=== PATIENT | male | born 1955 ===

== ENCOUNTER 2017-01-16 15:52 | Inpatient (IN) | payer BC ==
[2017-01-16] MEDS ORDERED: Naloxone 0.4 mg/ml Inj (Adult) IVP STA ×2 (16:07→19:54)
[2017-01-16] MEDS ORDERED: Naloxone 0.4 mg/ml Inj (Adult) ONE ×2 (16:09→19:57)
--- NOTE | 2017-01-16 16:13 | ED PDOC ---
HPI: Psych/Substance Abuse Time Seen by Provider: 01/16/17 16:01 Chief Complaint (Nursing): Substance Abuse Chief Complaint (Provider): substance abuse ED Caveat: Acuity of Condition History Per: EMS History/Exam Limitations: intoxication Current Symptoms Are (Timing): Still Present Modifying Factor(s): Other ("pain pills") Severity: Moderate Additional Complaint(s): 61 year old male with a pertinent medical history of opioid abuse and COPD is brought into the ED by EMS for possible substance abuse. Patient is currently nodding off during HPI and physical exam and falls asleep before answering the questions. HPI as per EMS: patient was found drowsy, walking home from work and seen by a bystander as stumbling. He denies any drug use, but admits to taking "pain pills for a headache". PMD: Daniel Lechuga MD Past Medical History Reviewed: Historical Data, Nursing Documentation, Vital Signs Vital Signs: Last Vital Signs Temp 97.6 F 01/16/17 15:57 Pulse 88 01/16/17 15:57 Resp 14 01/16/17 15:57 BP 112/61 01/16/17 15:57 Pulse Ox 94 L 01/16/17 15:57 - Medical History PMH: Anxiety, Asthma, Bronchitis, Fractures (WRIST/NOSE/LEG/CASTED NO SURGERY), Pneumonia (1 yr ago) Denies: HIV, Chronic Kidney Disease - Family History Family History: States: Unknown Family Hx - Social History Current smoker - smoking cessation education provided: Yes Alcohol: None Drugs: Denies, Other (history of opioid use) - Immunization History Hx Tetanus Toxoid Vaccination: No Hx Influenza Vaccination: No Hx Pneumococcal Vaccination: No - Home Medications Home Medications: Ambulatory Orders Medication Instructions Recorded Multivitamin/Iron/Folic Acid 1 tab PO DAILY 01/13/16 [Centrum Complete Multivit Tab] - Allergies Allergies/Adverse Reactions: Allergies Allergy/AdvReac Type Severity Reaction Status Date / Time No Known Allergies Allergy Verified 06/18/15 16:39 Review of Systems ROS Statement: Except As Marked, All Systems Reviewed And Found Negative Neurological: Positive for: Altered Mental Status Physical Exam - Reviewed Nursing Documentation Reviewed: Yes Vital Signs Reviewed: Yes - Physical Exam Appears: Positive for: Non-toxic, No Acute Distress. Negative for: Well (thin appearing, dissheveled) Head Exam: Positive for: ATRAUMATIC, NORMOCEPHALIC Eye Exam: Negative for: Normal appearance (pinpoint pupils) Neurologic/Psych: Positive for: Alert, Oriented (x2) - Laboratory Results Result Diagrams: 01/16/17 17:04 01/16/17 17:04 - ECG O2 Sat by Pulse Oximetry: 94 (RA) Pulse Ox Interpretation: Abnormal Medical Decision Making Medical Decision Makin:01 Initial impression: 61 year old male having an opioid overdose. Initial plan: * drug screen urinary * accucheck * reevaluation 18:45 Patient will be placed into ED observation secondary to clinical condition. See ED observation note for further updates. Scribe Attestation: Documented by Carla Zarco, acting as a scribe for Guru Palencia MD. Provider Scribe Attestation: All medical record entries made by the Scribe were at my direction and personally dictated by me. I have reviewed the chart and agree that the record accurately reflects my personal performance of the history, physical exam, medical decision making, and the department course for this patient. I have also personally directed, reviewed, and agree with the discharge instructions and disposition. ED OBSERVATION Date of observation admission: 01/16/17 Time of observation admission: 18:45 - Observation admission statement Patient is being placed in observation because:: secondary to clinical condition - Goals of Observation Goals of observation are:: Patient is being placed into ED observation pending reevaluation and final disposition. - Progress Note Progress Note: 01/16/17 18:51 Spoke with , who agrees with decision to admit pt to ED observation for respiratory depression. Patient is on 91% O2, easily arousable to voice. Patient does not need 2nd dose of narcan. Consult for potential ICU admission. 01/16/17 20:[address] in ICU to observe overnight for respiratory depression given concurrent opiate overdose and patient having COPD. Spoke with Dr. Thomas who agrees with ICU admission. Patient maintaining saturation at 90-91 % on 2L and easily arousable to voice. Narcan drip not needed at this time, was going to administer .2mg of narcan but patient was awake already at that moment. Disposition - Clinical Impression Clinical Impression: Opiate overdose - Disposition Disposition Time: 20:09 Condition: STABLE
[2017-01-16 17:07] LABS: EOS # 0.1 K/uL (0.0-0.7); EOS % 1.1 % (0.0-4.0); HEMATOCRIT 35.2 % (35.0-51.0); LYMPH # 0.4 K/uL (1.0-4.3); MEAN CELL VOLUME 90.8 fl (80.0-94.0); MEAN CORPUSCULAR HEMOGLOBIN 29.9 pg (27.0-31.0); MEAN CORPUSCULAR HGB CONC 32.9 g/dL (33.0-37.0); MONO # 4.5 K/uL (0.0-0.8); NEUT # 4.4 K/uL (1.8-7.0); PLATELET COUNT 263 K/uL (130-400); RED CELL DISTRIBUTION WIDTH 14.6 % (11.5-14.5); WHITE BLOOD COUNT 9.5 K/uL (4.8-10.8)
[2017-01-16 17:13] LABS: ABG ALLEN TEST YES; ARTERIAL BLOOD GAS HCO3 25.6 mmol/L (21-28); ARTERIAL BLOOD GAS PH 7.34 (7.35-7.45); ARTERIAL BLOOD GAS PO2 49 mm/Hg (80-100)
[2017-01-16 17:19] LABS: BLOOD UREA NITROGEN 22 mg/dl (9-20); CALCIUM 9.2 mg/dL (8.4-10.2); CARBON DIOXIDE 24 mmol/L (22-30); CHLORIDE 104 mmol/L (98-107); GFR AFRICAN-AMERICAN > 60; GLUCOSE,RANDOM 75 mg/dL (75-110); POTASSIUM 4.2 MMOL/L (3.6-5.0); SODIUM 143 mmol/l (132-148)
[2017-01-16 17:25] LABS: ALCOHOL SERUM < 10 mg/dl (0-10)
[2017-01-16] MEDS ORDERED: Sodium Chloride 0.9% 1,000 ML IV STA (19:05)
[2017-01-16 19:34] LABS: NEUTROPHIL 64 % (42-75); TOTAL CELLS COUNTED 100
[2017-01-16 19:35] LABS: BASOPHIL 1 % (0-2); MONO % 7.5 % (0.0-10.0)
[2017-01-16 19:36] LABS: LYMPH % 25.8 % (20.0-40.0); NEUT % 63.8 % (50.0-75.0)
[2017-01-16] MEDS ORDERED: Albuterol-Ipratrop 3 mg / 0.5 (3 ml) UD INH PRN (21:13)
[2017-01-16] MEDS: Sodium Chloride 0.9% 1,000 ML IV SCH (22:12)
--- NOTE | 2017-01-16 23:07 | CP.CCUPN ---
CCU Subjective - Physician Review Events Since Last Encounter (Free Text): Chief complaint: Opiod abuse and unresponsiveness HPI: PT is a 61 year old male with a well known history of opiate abuse by taking pain pills. He is known to have h/o COPD, CAD, and HTN. He is brought into the ED by EMS for possible substance abuse as he was seen stumbling by neighbors and even falling asleep during examination with sudden arousal s/p 0.2 Narcan. PT is saturating well 92-93 % on 2 L NC but the worry is that he may decompensate over night. Patient is very drowsy and a history could not be obtained. He denies any drug use, but admits to taking "pain pills for a headache". PMD: Daniel Lechuga MD Vital Signs: Last Vital Signs Temp 97.6 F 01/16/17 15:57 Pulse 88 01/16/17 15:57 Resp 14 01/16/17 15:57 BP 112/61 01/16/17 15:57 Pulse Ox 94 L 01/16/17 15:57 PMH: Anxiety, Asthma, Bronchitis, Fractures, HTN (WRIST/NOSE/LEG/CASTED NO SURGERY), Pneumonia (1 yr ago) Family History: States: Unknown Family Hx Social HX: Drugs: Denies, Other (history of opioid use) Ambulatory Orders Medication Instructions Recorded Multivitamin/Iron/Folic Acid 1 tab PO DAILY 01/13/16 [Centrum Complete Multivit Tab] Allergies/Adverse Reactions: Allergies Allergy/AdvReac Type Severity Reaction Status Date / Time No Known Allergies Allergy Verified 06/18/15 16:39 CCU Objective - Vital Signs / Intake & Output Vital Signs (Last 4 hours): Vital Signs Temp Pulse Pulse Resp BP Pulse Ox 01/16/17 21:41 97.8 F 64 11 L 118/51 L 92 L 01/16/17 21:40 66 11 L 92 L 01/16/17 20:31 98.7 F 91 H 15 119/69 96 01/16/17 20:10 94 L Intake and Output (Last 8hrs): Intake & Output 01/16/17 01/16/17 01/16/17 06:59 14:59 22:59 Intake Total 100 Balance 100 Intake: IV 100 Oral 0 - Physical Exam Physical Exam Limitations: Positive for: Intoxication, Uncooperative Head: Positive for: Atraumatic, Normocephalic Pupils: Positive for: PERRL Extroacular Muscles: Positive for: EOMI Mouth: Positive for: Moist Mucous Membranes Neck: Positive for: Normal Range of Motion Respiratory/Chest: Positive for: Wheezes, Rhonchi Cardiovascular: Positive for: Regular Rate and Rhythm, Murmurs, Normal S1, S2 Abdomen: Positive for: Tenderness, Distention, Normal Bowel Sounds Upper Extremity: Positive for: Normal Inspection, Cyanosis, Edema Lower Extremity: Positive for: Normal Inspection, Edema Skin: Positive for: Warm, Dry, Rashes, Normal Color Psychiatric: Positive for: Intoxicated - Medications Active Medications: Active Medications Generic Name Dose Route Start Last Admin Trade Name Freq PRN Reason Stop Dose Admin Albuterol/Ipratropium 3 ml 01/16/17 21:13 Duoneb 3 Mg/0.5 Mg (3 Ml) Ud INH RQ6 PRN Shortness of Breath Aspirin 81 mg 01/17/17 09:00 Ecotrin PO DAILY MICHAEL Atorvastatin Calcium 40 mg 01/17/17 09:00 Lipitor PO DAILY MICHAEL Enoxaparin Sodium 40 mg 01/17/17 09:00 Lovenox SC DAILY [facility] Protocol Famotidine 20 mg 01/17/17 09:00 Pepcid IVP DAILY MICHAEL Sodium Chloride 1,000 mls @ 100 mls/hr 01/16/17 21:15 01/16/17 22:12 Sodium Chloride 0.9% IV 01/17/17 21:16 100 mls/hr .Q10H MICHAEL Administration Methylprednisolone 40 mg/ 50 mls @ 100 mls/hr 01/17/17 01:00 Sodium Chloride IVPB Q8 MICHAEL - Patient Studies Fingerstick Blood Sugar Results: 81 Review of Systems - Constitutional Constitutional: UN - EENT Eyes: UNREMARKABLE Ears: UNREMARKABLE Nose/Mouth/Throat: UNREMARKABLE - Cardiovascular Cardiovascular: UNREMARKABLE - Respiratory Respiratory: UNREMARKABLE - Gastrointestinal Gastrointestinal: UNREMARKABLE - Musculoskeletal Musculoskeletal: UNREMARKABLE - Integumentary Integumentary: UNREMARKABLE - Neurological Neurological: UNREMARKABLE Additional comments: lethargic - Psychiatric Psychiatric: UNREMARKABLE - Endocrine Endocrine: UNREMARKABLE - Hematologic/Lymphatic Hematologic: UNREMARKABLE Critical Care Progress Note - Ventilator Checklist PUD Prophalyxis: Yes DVT Prophylaxis: Yes - Extremities/Vascular Does the Patient need a Central Venous Catheter?: No Does the Patient have a Swenson Catheter?: No Does the Patient need a Swenson Catheter?: No Assessment/Plan - Assessment and Plan (Free Text) Assessment: PT is a 61 yo male with a well known history of taking narcotic medication with lethargy and weakness found stumbling and hard to arouse here in the ER desaturating with oxygen and requiring narcan with some slight improvement. Plan: Admit to ICU for overnight monitorization 1) Respiratory hypercapneic failure with resolution with narcan. - PT requiring supplemenetal o2 - now improved s/p narcan 2) H/o Copd- pt with slight wheeze on exam - solumdrol and duoneb - no use of accessory muscle 3) clinically looking dehydrated- iv fluids 4) CAD and HTN- will c/w aspirin and lipitor - Date & Time Date: 01/16/17 Time: 23:16
[2017-01-16 23:23] VITALS: BMI 19.3
[2017-01-17] MEDS: methylPREDNISolone 40 MG in Sodium Chloride 0.9% 50 ML IVPB SCH ×2 (00:08→08:30)
[2017-01-17] MEDS ORDERED: Dextrose 50% SYRINGE Inj (50 ml) IV PRN (06:51)
[2017-01-17] MEDS ORDERED: Glucagon Recombinant 1 mg Inj IM PRN (06:51)
[2017-01-17 07:29] LABS: BASO % 0.4 % (0.0-2.0); EOS % 0.1 % (0.0-4.0); HEMATOCRIT 38.5 % (35.0-51.0); LYMPH # 0.5 K/uL (1.0-4.3); LYMPH % 4.4 % (20.0-40.0); MEAN CELL VOLUME 90.2 fl (80.0-94.0); MEAN CORPUSCULAR HEMOGLOBIN 29.3 pg (27.0-31.0); MEAN CORPUSCULAR HGB CONC 32.5 g/dL (33.0-37.0); MEAN PLATELET VOLUME 8.4 fl (7.2-11.7); MONO # 0.1 K/uL (0.0-0.8); MONO % 0.8 % (0.0-10.0); NEUT # 11.7 K/uL (1.8-7.0); NEUT % 94.3 % (50.0-75.0); PLATELET COUNT 236 K/uL (130-400); RED CELL DISTRIBUTION WIDTH 14.4 % (11.5-14.5); WHITE BLOOD COUNT 12.4 K/uL (4.8-10.8)
[2017-01-17] MEDS ORDERED: Insulin Regular 100 units/ml SC SCH (07:30)
[2017-01-17 08:05] VITALS: BP 116/83; PULSE 64; RESP 12; TEMP 98.3; O2SAT 100
[2017-01-17] MEDS: Sodium Chloride 0.9% 1,000 ML IV SCH (08:30)
[2017-01-17] MEDS ORDERED: Enoxaparin 40 mg Syringe SC SCH (09:00)
--- NOTE | 2017-01-17 09:09 | CP.CCUPN ---
CCU Subjective - Physician Review Events Since Last Encounter (Free Text): 01/17/17 09:07 Pt is sleepy but wokes up on verbal command, he gave me all the history, he is not confused, he is oriented and cooperative and had no intention to hurt himself and said he took those tabs for headache given by mickey, his vitals are stable, saturation 94% on 2 l NC ,probably has COPD as he has been a smoker since age 13. CCU Objective - Vital Signs / Intake & Output Vital Signs (Last 4 hours): Vital Signs Temp Pulse Resp BP Pulse Ox 01/17/17 08:05 98.3 F 64 12 116/83 100 01/17/17 06:00 74 13 129/86 99 Intake and Output (Last 8hrs): Intake & Output 01/16/17 01/17/17 01/17/17 22:59 06:59 14:59 Intake Total 100 850 100 Output Total 500 260 Balance 100 350 -160 Weight 135 lb Intake: IV 100 800 100 Intake, Piggyback 50 Oral 0 0 0 Output: Urine 500 260 Urine, Voided 500 260 Stool 0 Other: # Voids Urine, Voided 1 - Physical Exam Narrative Physical Exam (Free Text): 01/17/17 09:09 P/E neck; No JVD Lugs few scattered ronci Abdomen: soft, non-tender Ext: No edema Heart: n gallop. Head: Positive for: Atraumatic, Normocephalic Pupils: Positive for: PERRL Extroacular Muscles: Positive for: EOMI Mouth: Positive for: Moist Mucous Membranes Neck: Positive for: Normal Range of Motion Respiratory/Chest: Positive for: Wheezes, Rhonchi Cardiovascular: Positive for: Regular Rate and Rhythm, Murmurs, Normal S1, S2 Abdomen: Positive for: Tenderness, Distention, Normal Bowel Sounds Upper Extremity: Positive for: Normal Inspection, Cyanosis, Edema Lower Extremity: Positive for: Normal Inspection, Edema Skin: Positive for: Warm, Dry, Rashes, Normal Color Psychiatric: Positive for: Intoxicated - Medications Active Medications: Active Medications Generic Name Dose Route Start Last Admin Trade Name Freq PRN Reason Stop Dose Admin Albuterol/Ipratropium 3 ml 01/16/17 21:13 Duoneb 3 Mg/0.5 Mg (3 Ml) Ud INH RQ6 PRN Shortness of Breath Aspirin 81 mg 01/17/17 09:00 Ecotrin PO DAILY MICHAEL Atorvastatin Calcium 40 mg 01/17/17 09:00 Lipitor PO DAILY MICHAEL Dextrose 0 gm 01/17/17 06:51 Glutose 15 PO ONCE PRN Hypoglycemia Protocol Protocol Dextrose 0 ml 01/17/17 06:51 Dextrose 50% Inj IV STAT PRN Hyglycemia Protocol Protocol Enoxaparin Sodium 40 mg 01/17/17 09:00 01/17/17 08:31 Lovenox SC 40 mg DAILY MICHAEL Administration Protocol Famotidine 20 mg 01/17/17 09:00 01/17/17 08:32 Pepcid IVP 20 mg DAILY MICHAEL Administration Glucagon 0 mg 01/17/17 06:51 Glucagen Diagnostic Kit IM STAT PRN Hypoglycemia Protocol Protocol Sodium Chloride 1,000 mls @ 100 mls/hr 01/16/17 21:15 01/17/17 08:30 Sodium Chloride 0.9% IV 01/17/17 21:16 100 mls/hr .Q10H MICHAEL Administration Methylprednisolone 40 mg/ 50 mls @ 100 mls/hr 01/17/17 01:00 01/17/17 08:30 Sodium Chloride IVPB 100 mls/hr Q8 MICHAEL Administration Insulin Human Regular 0 units 01/17/17 07:30 01/17/17 08:29 Humulin R SC Not Given A[facility]S [facility] Protocol - Patient Studies Lab Studies: Lab Studies 01/17/17 01/17/17 01/16/17 Range/Units 06:26 05:30 23:45 WBC 12.4 H (4.8-10.8) K/uL RBC 4.27 L (4.40-5.90) Mil/uL Hgb 12.5 (12.0-18.0) g/dL Hct 38.5 (35.0-51.0) % MCV 90.2 (80.0-94.0) fl MCH 29.3 (27.0-31.0) pg MCHC 32.5 L (33.0-37.0) g/dL RDW 14.4 (11.5-14.5) % Plt Count 236 (130-400) K/uL MPV 8.4 (7.2-11.7) fl Neut % (Auto) 94.3 H (50.0-75.0) % Lymph % (Auto) 4.4 L (20.0-40.0) % Harrison % (Auto) 0.8 (0.0-10.0) % Eos % (Auto) 0.1 (0.0-4.0) % Baso % (Auto) 0.4 (0.0-2.0) % Neut # 11.7 H (1.8-7.0) K/uL Lymph # 0.5 L (1.0-4.3) K/uL Harrison # 0.1 (0.0-0.8) K/uL Eos # 0.0 (0.0-0.7) K/uL Baso # 0.0 (0.0-0.2) K/uL POC Glucose (mg/dL) 112 H 88 (65-110) mg/dL CK-MB (Mass) 2.02 (0.0-3.38) ng/mL Triglycerides 52 D (0-149) mg/DL Cholesterol 204 H (0-199) mg/dL LDL Cholesterol Direct 151 H (0-129) mg/dL HDL Cholesterol 42 (30-70) MG/DL 01/16/17 Range/Units 20:52 WBC (4.8-10.8) K/uL RBC (4.40-5.90) Mil/uL Hgb (12.0-18.0) g/dL Hct (35.0-51.0) % MCV (80.0-94.0) fl MCH (27.0-31.0) pg MCHC (33.0-37.0) g/dL RDW (11.5-14.5) % Plt Count (130-400) K/uL MPV (7.2-11.7) fl Neut % (Auto) (50.0-75.0) % Lymph % (Auto) (20.0-40.0) % Harrison % (Auto) (0.0-10.0) % Eos % (Auto) (0.0-4.0) % Baso % (Auto) (0.0-2.0) % Neut # (1.8-7.0) K/uL Lymph # (1.0-4.3) K/uL Harrison # (0.0-0.8) K/uL Eos # (0.0-0.7) K/uL Baso # (0.0-0.2) K/uL POC Glucose (mg/dL) 81 (65-110) mg/dL CK-MB (Mass) (0.0-3.38) ng/mL Triglycerides (0-149) mg/DL Cholesterol (0-199) mg/dL LDL Cholesterol Direct (0-129) mg/dL HDL Cholesterol (30-70) MG/DL Laboratory Results - last 24 hr 01/16/17 01/16/17 01/17/17 20:52 23:45 05:30 WBC 12.4 H RBC 4.27 L Hgb 12.5 Hct 38.5 MCV 90.2 MCH 29.3 MCHC 32.5 L RDW 14.4 Plt Count 236 MPV 8.4 Neut % (Auto) 94.3 H Lymph % (Auto) 4.4 L Harrison % (Auto) 0.8 Eos % (Auto) 0.1 Baso % (Auto) 0.4 Neut # 11.7 H Lymph # 0.5 L Harrison # 0.1 Eos # 0.0 Baso # 0.0 POC Glucose (mg/dL) 81 88 CK-MB (Mass) 2.02 Triglycerides 52 D Cholesterol 204 H LDL Cholesterol Direct 151 H HDL Cholesterol 42 01/17/17 06:26 WBC RBC Hgb Hct MCV MCH MCHC RDW Plt Count MPV Neut % (Auto) Lymph % (Auto) Harrison % (Auto) Eos % (Auto) Baso % (Auto) Neut # Lymph # Harrison # Eos # Baso # POC Glucose (mg/dL) 112 H CK-MB (Mass) Triglycerides Cholesterol LDL Cholesterol Direct HDL Cholesterol Fingerstick Blood Sugar Results: 112 Assessment/Plan - Assessment and Plan (Free Text) Assessment: Drug overdose, unintentional probably opiods COPD: stable HTN Plan: Continue current meds transfer to [facility] Could be sent home later today, if stable .
--- NOTE | 2017-01-17 10:40 | RAD ---
HISTORY: desaturating, opiate o/d . Technique: Single view portable semi erect @ 19:27. COMPARISON: 01/13/2016. FINDINGS: LUNGS: No active pulmonary disease. PLEURA: No significant pleural effusion identified, no pneumothorax apparent. CARDIOVASCULAR: No radiographic findings to suggest acute or significant cardiovascular disease. OSSEOUS STRUCTURES: No significant abnormalities. VISUALIZED UPPER ABDOMEN: Normal. OTHER FINDINGS: None. IMPRESSION: No active disease. No significant interval change compared to the prior examination(s).
--- NOTE | 2017-01-17 10:51 | CP.PCM.HP ---
History of Present Illness - History of Present Illness History of Present Illness: PT is a 61 year old male with history of opiate abuse. He is known to have h/o COPD, CAD, and HTN. He is brought into the ED by EMS with mental status changes for possible substance abuse as he was seen stumbling by neighbors and even falling asleep during examination. In ER he was arousal after 0.2 Narcan. PT is saturating well 92-93 % on 2 L NC but the worry is that he may decompensate over night with exacerbation of COPD. At present not in distress. Present on Admission - Present on Admission Any Indicators Present on Admission: No Review of Systems - Constitutional Constitutional: As Per HPI - EENT Eyes: As Per HPI Nose/Mouth/Throat: As Per HPI - Cardiovascular Cardiovascular: As Per HPI - Respiratory Respiratory: As Per HPI - Gastrointestinal Gastrointestinal: As Per HPI - Musculoskeletal Musculoskeletal: As Per HPI - Neurological Neurological: As Per HPI - Psychiatric Psychiatric: As Per HPI - Endocrine Endocrine: As Per HPI Past Patient History - Infectious Disease Hx of Infectious Diseases: None - Past Medical History & Family History Past Medical History?: Yes - Past Social History Smoking Status: 1 pack a d - CARDIAC Hx 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) - PULMONARY Hx Respiratory Disorders: Yes Hx Asthma: Yes Hx Bronchitis: Yes Hx Pneumonia: Yes (1 yr ago) - NEUROLOGICAL Hx Neurological Disorder: No - HEENT Hx HEENT Problems: No - RENAL Hx Chronic Kidney Disease: No - ENDOCRINE/METABOLIC Hx Endocrine Disorders: Yes Hx Diabetes Mellitus Type 2: Yes - HEMATOLOGICAL/ONCOLOGICAL Hx Blood Disorders: No Hx AIDS: No Hx Human Immunodeficiency Virus (HIV): No - INTEGUMENTARY Hx Dermatological Problems: No - MUSCULOSKELETAL/RHEUMATOLOGICAL Hx Musculoskeletal Disorders: Yes Hx Falls: No Hx Fractures: Yes (WRIST/NOSE/LEG/CASTED NO SURGERY) - GASTROINTESTINAL Hx Gastrointestinal Disorders: Yes Other/Comment: H/O Bilateral Inguinal Hernia - GENITOURINARY/GYNECOLOGICAL Hx Genitourinary Disorders: No Hx Sexually Transmitted Disorders: No - PSYCHIATRIC Hx Psychophysiologic Disorder: No Hx Anxiety: Yes Hx Substance Use: No - SURGICAL HISTORY Hx Surgeries: Yes (HEMORRHOIDECTOMY) Hx Herniorrhaphy: Yes (LEFT INGUINAL) Other/Comment: laryngoscopy removal polyps jun 2014 - ANESTHESIA Hx Anesthesia: Yes Hx Anesthesia Reactions: Yes (resp distress due to polyps) Hx Malignant Hyperthermia: No Meds Allergies/Adverse Reactions: Allergies Allergy/AdvReac Type Severity Reaction Status Date / Time No Known Allergies Allergy Verified 01/16/17 20:29 Physical Exam - Constitutional Appears: Non-toxic - Head Exam Head Exam: ATRAUMATIC, NORMAL INSPECTION, NORMOCEPHALIC - Eye Exam Eye Exam: EOMI, Normal appearance, PERRL Pupil Exam: NORMAL ACCOMODATION, PERRL - ENT Exam ENT Exam: Mucous Membranes Moist, Normal Exam - Neck Exam Neck exam: Positive for: Normal Inspection - Respiratory Exam Respiratory Exam: Clear to Auscultation Bilateral - Cardiovascular Exam Cardiovascular Exam: REGULAR RHYTHM, +S1, +S2 - GI/Abdominal Exam GI & Abdominal Exam: Normal Bowel Sounds - Extremities Exam Extremities exam: Positive for: normal inspection - Neurological Exam Neurological exam: Alert, CN II-XII Intact, Normal Gait, Oriented x3, Reflexes Normal - Psychiatric Exam Psychiatric exam: Normal Affect Results - Vital Signs Recent Vital Signs: Last Vital Signs Temp 98.3 F 01/17/17 08:05 Pulse 64 01/17/17 08:05 Resp 12 01/17/17 08:05 BP 116/83 01/17/17 08:05 Pulse Ox 100 01/17/17 08:05 - Labs Result Diagrams: 01/17/17 05:30 01/16/17 17:04 Labs: Laboratory Results - last 24 hr 01/16/17 01/16/17 01/17/17 20:52 23:45 05:30 WBC 12.4 H RBC 4.27 L Hgb 12.5 Hct 38.5 MCV 90.2 MCH 29.3 MCHC 32.5 L RDW 14.4 Plt Count 236 MPV 8.4 Neut % (Auto) 94.3 H Lymph % (Auto) 4.4 L Clayton % (Auto) 0.8 Eos % (Auto) 0.1 Baso % (Auto) 0.4 Neut # 11.7 H Lymph # 0.5 L Clayton # 0.1 Eos # 0.0 Baso # 0.0 POC Glucose (mg/dL) 81 88 CK-MB (Mass) 2.02 Triglycerides 52 D Cholesterol 204 H LDL Cholesterol Direct 151 H HDL Cholesterol 42 01/17/17 06:26 WBC RBC Hgb Hct MCV MCH MCHC RDW Plt Count MPV Neut % (Auto) Lymph % (Auto) Clayton % (Auto) Eos % (Auto) Baso % (Auto) Neut # Lymph # Clayton # Eos # Baso # POC Glucose (mg/dL) 112 H CK-MB (Mass) Triglycerides Cholesterol LDL Cholesterol Direct HDL Cholesterol Assessment & Plan (1) Opiate overdose Status: Acute (2) Altered mental state Status: Acute (3) Dehydration Status: Acute (4) Drug abuse Status: Acute (5) Near syncope Status: Acute (6) Vertigo Status: Acute (7) COPD exacerbation Status: Acute - Assessment and Plan (Free Text) Plan: Patient AAOx3 he want to sign AMA. Patient was informed that he will need more therapy and was informed about his condition and severe outcome if leaves the hospital. He asked questions and I answered.
[2017-01-17 11:55] LABS: NEUTROPHIL 96 % (42-75); TOTAL CELLS COUNTED 100
== END 2017-01-17 11:29 | disposition left against medical advice (07) | DRG 918 ==
LOC: H.ER 15:52 → H.EROBSV 18:45 → OBSVTOIN 19:54 → H.ERHOLD 20:01 → H.ICU/CCU 20:55
PROVIDERS: ADMIT Internal Medicine; ATTEND Internal Medicine
DX: T40.2X1A Poisoning by other opioids, accidental (unintentional), initial encounter (principal); J44.1 Chronic obstructive pulmonary disease with (acute) exacerbation; I10 Essential (primary) hypertension; F11.10 Opioid abuse, uncomplicated; E86.0 Dehydration; R55 Syncope and collapse; I25.10 Atherosclerotic heart disease of native coronary artery without angina pectoris; J45.909 Unspecified asthma, uncomplicated; F41.9 Anxiety disorder, unspecified; F17.210 Nicotine dependence, cigarettes, uncomplicated; Y92.009 Unspecified place in unspecified non-institutional (private) residence as the place of occurrence of the external cause

== ENCOUNTER 2017-03-24 14:10 | Emergency (ER) | payer BC ==
--- NOTE | 2017-03-24 15:38 | ED PDOC ---
HPI: Psych/Substance Abuse Time Seen by Provider: 03/24/17 14:30 Chief Complaint (Nursing): Substance Abuse Chief Complaint (Provider): Substance Abuse History Per: Patient History/Exam Limitations: no limitations Onset/Duration Of Symptoms: Hrs (prior to arrival ) Current Symptoms Are (Timing): Still Present Additional Complaint(s): 61 y/o male with a past medical history of chronic obstructive pulmonary disease , coronary artery disease, and hypertension who presents to the emergency department after found sleeping on a bench prior to arrival. Admits to taking Xanax. Denies suicidal or homicidal ideation, physical pain, discomfort, or any further medical complaints. Of note, patient was admitted on 01/16/2017 for opioid overdose. Past Medical History Reviewed: Historical Data, Nursing Documentation, Vital Signs Vital Signs: Last Vital Signs Temp 98.9 F 03/24/17 14:13 Pulse 86 03/24/17 14:13 Resp 18 03/24/17 14:13 BP 110/70 03/24/17 14:13 Pulse Ox 95 03/24/17 14:13 - Medical History PMH: Anxiety, Asthma, Bronchitis, Fractures (WRIST/NOSE/LEG/CASTED NO SURGERY), Pneumonia (1 yr ago) Denies: HIV, Chronic Kidney Disease, Sexually Transmitted Disease - Surgical History Other surgeries: hemorrhoidectomy - Family History Family History: States: Unknown Family Hx - Social History Current smoker - smoking cessation education provided: Yes (Heavy Smoker >10 cigarettes daily) Alcohol: None Drugs: Other - Immunization History Hx Tetanus Toxoid Vaccination: No Hx Influenza Vaccination: No Hx Pneumococcal Vaccination: No - Home Medications Home Medications: Ambulatory Orders Medication Instructions Recorded Unobtainable 01/16/17 - Allergies Allergies/Adverse Reactions: Allergies Allergy/AdvReac Type Severity Reaction Status Date / Time No Known Allergies Allergy Verified 01/16/17 20:29 Review of Systems ROS Statement: Except As Marked, All Systems Reviewed And Found Negative Constitutional: Negative for: Other (pain or discomfort) Psych: Negative for: Suicidal ideation (or homicidal ideation) Physical Exam - Reviewed Nursing Documentation Reviewed: Yes Vital Signs Reviewed: Yes - Physical Exam Appears: Positive for: Non-toxic Head Exam: Positive for: ATRAUMATIC, NORMAL INSPECTION, NORMOCEPHALIC Skin: Positive for: Normal Color, Warm, Dry ENT: Positive for: Normal ENT Inspection. Negative for: Pharyngeal Erythema Neck: Positive for: Normal, Supple Cardiovascular/Chest: Positive for: Regular Rate, Rhythm. Negative for: Murmur Respiratory: Positive for: Normal Breath Sounds. Negative for: Accessory Muscle Use, Respiratory Distress Gastrointestinal/Abdominal: Positive for: Normal Exam, Soft. Negative for: Tenderness Extremity: Positive for: Normal ROM. Negative for: Pedal Edema Neurologic/Psych: Positive for: Alert, Oriented, Other (Poor hygiene) - Laboratory Results Result Diagrams: 03/24/17 15:37 03/24/17 15:37 - ECG ECG Rhythm: Positive for: Sinus Rhythm (Normal at 73 bpm. ) O2 Sat by Pulse Oximetry: 95 (RA) Pulse Ox Interpretation: Normal Medical Decision Making Medical Decision Making: Time: 14:49 Initial impression: Substance Abuse Initial plan: --Electrocardiogram STAT --Acetaminophen STAT --Alcohol Serum STAT --COMP Metabolic Panel --Drug Screen, urine --Salicylate STAT --ED Urine Dipstick (POC) --EKG-ED (EDNURTX) --CBC w/ differential --Reevaluation labs reviewed pt feels better , stable for dc. stable gait and stable vitals. Time: 16:45 --EKG: normal sinus rhythm at 73 bpm. labs reviewed pt feels better , stable for dc. stable gait and stable vitals. Scribe Attestation: Documented by Chantel Armando, acting as a scribe for Mireya Ford MD. Provider Scribe Attestation: All medical record entries made by the Scribe were at my direction and personally dictated by me. I have reviewed the chart and agree that the record accurately reflects my personal performance of the history, physical exam, medical decision making, and the department course for this patient. I have also personally directed, reviewed, and agree with the discharge instructions and disposition. Disposition - Clinical Impression Clinical Impression: Substance abuse - Patient ED Disposition Is Patient to be Admitted: No Counseled Patient/Family Regarding: Studies Performed, Diagnosis, Need For Followup - Disposition Referrals: [facility] [Outside] [facility] [Outside] Disposition: Routine/Home Disposition Time: 16:00 Condition: IMPROVED Additional Instructions: follow up with your primary doctor in 1-2 days return to the ED with any worsening or concerning symptoms. Instructions: Polysubstance Abuse (ED)
[2017-03-24 15:43] LABS: BASO % 0.3 % (0.0-2.0); EOS # 0.1 K/uL (0.0-0.7); EOS % 1.3 % (0.0-4.0); HEMATOCRIT 33.9 % (35.0-51.0); LYMPH # 1.6 K/uL (1.0-4.3); LYMPH % 15.6 % (20.0-40.0); MEAN CELL VOLUME 87.8 fl (80.0-94.0); MEAN CORPUSCULAR HEMOGLOBIN 29.7 pg (27.0-31.0); MEAN CORPUSCULAR HGB CONC 33.8 g/dL (33.0-37.0); MEAN PLATELET VOLUME 7.4 fl (7.2-11.7); MONO # 0.5 K/uL (0.0-0.8); MONO % 4.9 % (0.0-10.0); NEUT # 7.9 K/uL (1.8-7.0); NEUT % 77.9 % (50.0-75.0); RED CELL DISTRIBUTION WIDTH 14.1 % (11.5-14.5); WHITE BLOOD COUNT 10.2 K/uL (4.8-10.8)
[2017-03-24 16:09] LABS: ALCOHOL SERUM < 10 mg/dl (0-10); ALKALINE PHOSPHATASE 67 U/L (38-126); ALT/SGPT 36 U/L (21-72); AST/SGOT 16 U/L (17-59); BILIRUBIN,TOTAL 0.3 mg/dl (0.2-1.3); BLOOD UREA NITROGEN 16 mg/dl (9-20); CARBON DIOXIDE 24 mmol/L (22-30); CHLORIDE 107 mmol/L (98-107); GFR AFRICAN-AMERICAN > 60; GLUCOSE,RANDOM 139 mg/dL (75-110); POTASSIUM 3.3 MMOL/L (3.6-5.0); SODIUM 142 mmol/l (132-148); TOTAL PROTEIN 7.3 G/DL (6.3-8.2)
[2017-03-24] MEDS ORDERED: Potassium Chloride 20 mEq ER Tab PO ONE (16:18)
[2017-03-24 17:45] VITALS: BP 128/78; PULSE 78; RESP 20; TEMP 97.6
--- NOTE | 2017-03-26 00:02 | CARD ---
APPROVED REPORT EKG Measurement Heart [id number] <Conclusion> Normal sinus rhythm with sinus arrhythmia Normal ECG
[2017-03-29 06:51] VITALS: O2SAT 95
== END 2017-03-24 17:46 | disposition home or self-care (01) ==
LOC: H.ER 14:10
DX: F41.9 Anxiety disorder, unspecified (principal); I10 Essential (primary) hypertension; I25.10 Atherosclerotic heart disease of native coronary artery without angina pectoris; J44.9 Chronic obstructive pulmonary disease, unspecified; F17.210 Nicotine dependence, cigarettes, uncomplicated
CPT/HCPCS: 80053; 85025; 93005; 99281; G0480

== ENCOUNTER 2017-04-10 13:46 | Observation (INO) | payer BC ==
[2017-04-10 13:57] VITALS: TEMP 98.5
[2017-04-10 13:58] VITALS: BMI 23.5
[2017-04-10] MEDS ORDERED: Albuterol-Ipratrop 3 mg / 0.5 (3 ml) UD INH STA (15:22)
[2017-04-10] MEDS ORDERED: Sodium Chloride 0.9% 1,000 ML IV STA ×2 (15:24→18:11)
[2017-04-10] MEDS ORDERED: Albuterol-Ipratrop 3 mg / 0.5 (3 ml) UD ONE ×2 (15:30→16:24)
--- NOTE | 2017-04-10 15:50 | ED PDOC ---
HPI: Psych/Substance Abuse Time Seen by Provider: 04/10/17 14:20 Chief Complaint (Nursing): Substance Abuse Chief Complaint (Provider): Alcohol Intoxication History Per: EMS History/Exam Limitations: intoxication Additional Complaint(s): Damián Dudley is a 61 y/o male presenting to the ER on 04/10/2017 via EMS for possible intoxication. Per EMS, patient was working and appeared to be intoxicated. Admits to taking two bags of heroin and taking two tabs of Vicodin. Offers no complaints. Denies SI, HI, or hallucinations. Past Medical History Reviewed: Historical Data, Nursing Documentation, Vital Signs Vital Signs: Last Vital Signs Temp 98.5 F 04/10/17 13:56 Pulse 73 04/10/17 13:56 Resp 20 04/10/17 13:56 BP 90/57 L 04/10/17 13:56 Pulse Ox 90 L 04/10/17 13:56 - Medical History PMH: Anxiety, Asthma, Bronchitis, Fractures (WRIST/NOSE/LEG/CASTED NO SURGERY), Pneumonia (1 yr ago) Denies: HIV, Chronic Kidney Disease, Sexually Transmitted Disease - Surgical History Surgical History: No Surg Hx - Family History Family History: States: Unknown Family Hx - Immunization History Hx Tetanus Toxoid Vaccination: No Hx Influenza Vaccination: No Hx Pneumococcal Vaccination: No - Home Medications Home Medications: Ambulatory Orders Medication Instructions Recorded No Known Home Med 03/30/17 - Allergies Allergies/Adverse Reactions: Allergies Allergy/AdvReac Type Severity Reaction Status Date / Time No Known Allergies Allergy Verified 03/30/17 15:52 Review of Systems Review Of Systems: ROS cannot be obtained secondary to pt's inabilty to answer questions. Physical Exam - Reviewed Nursing Documentation Reviewed: Yes Vital Signs Reviewed: Yes - Physical Exam Appears: Negative for: Non-toxic Head Exam: Positive for: ATRAUMATIC, NORMOCEPHALIC Skin: Positive for: Normal Color. Negative for: Rash Eye Exam: Positive for: Normal appearance ENT: Positive for: Normal ENT Inspection Neck: Positive for: Normal Cardiovascular/Chest: Positive for: Regular Rate, Rhythm. Negative for: Murmur Respiratory: Positive for: Rhonchi ((+) scattered) Gastrointestinal/Abdominal: Positive for: Normal Exam, Soft. Negative for: Tenderness Extremity: Positive for: Normal ROM. Negative for: Tenderness, Deformity, Swelling Neurologic/Psych: Positive for: Alert, Oriented. Negative for: Motor/Sensory Deficits - Laboratory Results Result Diagrams: 04/10/17 16:20 04/10/17 16:20 - ECG ECG: Positive for: Interpreted By Me ECG Rhythm: Positive for: Sinus Rhythm. Negative for: ST/T Changes Rate: 74 O2 Sat by Pulse Oximetry: 90 - Radiology X-Ray: Interpreted by Me (CXR) X-Ray Interpretation: No Acute Disease Medical Decision Making Medical Decision Makin:20 Initial Impression- Alcohol Intoxication Initial Plan- * ABG * EKG * Acetaminophen * Alcohol Serum * CMP * Drug Screen * Salicylate * CBC w/ differential * CXR * Duoneb 9 ml INH * Solumedrol 125 mg IVP * Sodium Chloride 1,000 ml IV * Urinalysis Pt will be placed under ED Observation. See ED OBS for further updates. Documented by Marie Son, acting as a scribe for Sidney Nova PA-C All medical record entries made by the Scribe were at my direction and personally dictated by me. I have reviewed the chart and agree that the record accurately reflects my personal performance of the history, physical exam, medical decision making, and the department course for this patient. I have also personally directed, reviewed, and agree with the discharge instructions and disposition. ED OBSERVATION Discharge: Yes Date of observation admission: 04/10/17 Time of observation admission: 15:22 - Observation admission statement Patient is being placed in observation because:: Pt is clinically intoxicated, as well as secondary to extensive ED workup - Goals of Observation Goals of observation are:: Labs, clinical sobriety, re-evaluation, and final disposition. - Progress Note Progress Note: 04/10/17 16:20 Pt. seen sleeping. Arousable to tactile stimuli and follows commands slowly but appropriately. Pt. placed on monitor. 04/10/17 17:51 On re-evaluation, pt. sleeping but easily arousable to verbal stimuli. POX: 86- 88% on O2. No respiratory distress. O2 removed and pt's POX milla to 97-95% on RA. Speaking in full sentences. Lungs clear b/l. 04/10/17 20:19 AOx3. Seen sitting down talking on cellphone. Pt. offers no complaints. Gait is steady and unassisted. Admits to taking Xanax and 2 bags of heroin. Denies SI/HI, hallucinations. Denies cough, SOB, chest pain, palpitations. Repeat POX: 92-93% on RA, HR: 76 bpm. Pt. is clinically sober. Disposition - Clinical Impression Clinical Impression: Substance abuse - Patient ED Disposition Is Patient to be Admitted: No - Disposition Disposition: Routine/Home Disposition Time: 20:21 Condition: IMPROVED
[2017-04-10 15:52] LABS: ABG ALLEN TEST YES; ARTERIAL BLOOD GAS HCO3 23.7 mmol/L (21-28); ARTERIAL BLOOD GAS HEMOGLOBIN 11.3 g/dL (11.7-17.4); ARTERIAL BLOOD GAS O2 CAPACITY 14.7 mL/dL (16-24); ARTERIAL BLOOD GAS O2 CONTENT 12.9 ML/dL (15-23); ARTERIAL BLOOD GAS O2 SAT 87.7 % (95-98); ARTERIAL BLOOD GAS PCO2 58 mm/Hg (35-45); ARTERIAL BLOOD GAS PH 7.27 (7.35-7.45); ARTERIAL BLOOD GAS PO2 48 mm/Hg (80-100); ARTERIAL BLOOD GAS TCO2 28.4 mmol/L (22-28)
[2017-04-10 16:36] LABS: ALB/GLOB RATIO 1.1 (1.0-2.1); ALBUMIN 4.2 g/dL (3.5-5.0); ALT/SGPT 41 U/L (21-72); AST/SGOT 40 U/L (17-59); BLOOD UREA NITROGEN 21 mg/dl (9-20); CALCIUM 9.4 mg/dL (8.4-10.2); GFR AFRICAN-AMERICAN > 60; GFR NON-AFRICAN AMERICAN > 60
[2017-04-10 16:41] LABS: BASO # 0.1 K/uL (0.0-0.2); EOS # 0.3 K/uL (0.0-0.7); EOS % 2.5 % (0.0-4.0); HEMOGLOBIN 11.7 g/dL (12.0-18.0); LYMPH # 2.3 K/uL (1.0-4.3); LYMPH % 23.1 % (20.0-40.0); MEAN CELL VOLUME 89.7 fl (80.0-94.0); MEAN CORPUSCULAR HEMOGLOBIN 29.6 pg (27.0-31.0); MEAN CORPUSCULAR HGB CONC 33.1 g/dL (33.0-37.0); MEAN PLATELET VOLUME 8.1 fl (7.2-11.7); MONO # 0.8 K/uL (0.0-0.8); MONO % 8.4 % (0.0-10.0); NEUT # 6.6 K/uL (1.8-7.0); NRBC % 0.1 % (0.0-0.0); RBC 3.93 Mil/uL (4.40-5.90); RED CELL DISTRIBUTION WIDTH 15.5 % (11.5-14.5); WHITE BLOOD COUNT 10.1 K/uL (4.8-10.8)
[2017-04-10 16:43] VITALS: BP 132/68
--- NOTE | 2017-04-10 16:46 | RAD ---
HISTORY: wheezing COMPARISON: 01/16/2017 FINDINGS: LUNGS: Hyperinflation consistent with COPD and or emphysema. Bibasilar atelectasis and or scarring. Developing infiltrates could be excluded with followup radiographs. . . Slight elevation right hemidiaphragm could be due to eventration. PLEURA: No significant pleural effusion identified, no pneumothorax apparent. CARDIOVASCULAR: Heart size is upper limits of normal. OSSEOUS STRUCTURES: No significant abnormalities. VISUALIZED UPPER ABDOMEN: Normal. OTHER FINDINGS: None. IMPRESSION: Hyperinflation consistent with COPD and or emphysema. Bibasilar atelectasis and or scarring. Developing infiltrates could be excluded with followup radiographs. . . Slight elevation right hemidiaphragm could be due to eventration.
[2017-04-10 17:10] LABS: SALICYLATE < 1.0 mg/dl
[2017-04-10 17:13] LABS: ACETAMINOPHEN < 10.0 ug/ml (10.0-30.0)
[2017-04-10 18:06] VITALS: RESP 18
[2017-04-10 18:30] LABS: BARBITURATES, UR NEGATIVE (NEGATIVE); BENZODIAZEPINES, UR POSITIVE (NEGATIVE); OPIATES, UR POSITIVE (NEGATIVE); PHENCYCLIDINE, UR NEGATIVE (NEGATIVE)
[2017-04-10 18:48] LABS: SQUAMOUS EPITHIAL < 1 /hpf (0-5); URINE BILIRUBIN NEGATIVE (NEGATIVE); URINE BLOOD NEGATIVE (NEGATIVE); URINE CLARITY SLIGHTY-CLOUDY (Clear); URINE COLOR YELLOW (YELLOW); URINE GLUCOSE (UA) NEG (Normal); URINE LEUKOCYTE ESTERASE NEG Leu/uL (Negative); URINE NITRATE NEGATIVE (NEGATIVE); URINE PROTEIN 30 mg/dL (NEGATIVE); URINE UROBILINOGEN 0.2-1.0 mg/dL (0.2-1.0)
[2017-04-10 20:19] VITALS: PULSE 74; O2SAT 90
--- NOTE | 2017-04-11 10:22 | CARD ---
APPROVED REPORT EKG Measurement Heart [id number] <Conclusion> Normal sinus rhythm Normal ECG
== END 2017-04-10 20:22 | disposition home or self-care (01) ==
LOC: H.ER 13:46 → H.EROBSV 15:22
PROVIDERS: ADMIT Emergency Medicine; ATTEND Emergency Medicine
DX: F10.129 Alcohol abuse with intoxication, unspecified (principal); J45.909 Unspecified asthma, uncomplicated; F41.9 Anxiety disorder, unspecified
CPT/HCPCS: 36415; 36600; 71010; 80053; 81003; 82803; 82948; 85025; 93005; 94640; 96361; 96374; 99284; G0378; G0480; J2930; J7040